=== PATIENT | female | born 1970 | race Caucasian/White ===

== ENCOUNTER 2016-10-12 17:05 | Inpatient (IN) | payer OTHER ==
[~2016-10-12] VITALS: Ht 170.2 cm; Wt 91.6 kg
[2016-10-12 17:06] VITALS: BP 145/84; PULSE 92; RESP 16; O2SAT 99
[2016-10-12 17:43] LABS: BASOPHILS % (AUTO) 0.5 % (0-3); EOSINOPHILS % (AUTO) 3.1 % (0-5); MONOCYTES % (AUTO) 7.2 % (4-12); Mean Corpuscular Hemoglobin 28.6 pg (27.0-35.0); Mean Corpuscular Volume 85.2 fL (81-100); Platelet Count 242 bil/L (150-400)
[2016-10-12 18:07] LABS: Magnesium 1.9 mg/dL (1.6-2.6)
--- NOTE | 2016-10-12 18:27 | ED.REPORT ---
HPI-Abd Pain F 40 and Over Date of Service Oct 12, 2016 ED Provider: Bobby Chowdhury MD Pt is a 46 y/o female w/ a hx of recent diverticulitis, presenting to the ED c/ o LLQ abdominal pain onset 6 days ago. The pt had a CT scan on September 29 which showed signs of diverticulitis and was placed on Augmentin and did not seemed to improve much. She saw her PCP soon afterwards who added Flagyl to her medication regimen and gave her more pain medication. She then seemed to improve for 2 days but for the past 5-6 days has been experiencing LLQ abdominal pain similar to her previous presentation, but more severe. She c/o associated nausea, diaphoresis. She denies fever. She has been able to keep some food down recently. She has not been able to sleep secondary to pain. Nursing Notes Stated Complaint: DIVERTICULITIS,BELLY PAIN Chief Complaint: Female Abdominal Pain Nursing Notes Reviewed: Yes ([employer], meds not reconciled) Allergies: Coded Allergies: Sulfa (Sulfonamide Antibiotics) (Verified Allergy, Unknown, 10/12/16) cephalexin (Verified Allergy, Unknown, 10/12/16) erythromycin base (Verified Allergy, Unknown, 10/12/16) latex (Verified Allergy, Unknown, 10/12/16) General Time Seen by MD: 18:25 Chief Complaint Abdominal pain Hx Obtained From: Patient Arrived By: Walk-in Sudden in Onset?: No Onset Occurred: 6 days ago Symptom Duration: Since onset Progression since Onset: Gradually worsening Location: : LLQ Quality: Painful Severity: Current: Moderate Severity: Maximum: Severe Recent Healthcare: Recent doctor visit, Recent testing, Previous diagnosis, Prior workup Similar Sx Previous: Yes Past Medical History Past Medical History Diverticulitis - CT + September 29, 2016 Hyperlipidemia Fibromyalgia Anxiety Insomnia Past Surgical History Appendectomy Total hysterectomy Smoking History Current Every Day Smoker Social History Alcohol Use: Denies alcohol use Ambulatory Status Independent Review of Systems Constitutional: Denies: Chills, Fever GI: Reports: Abdominal pain, Nausea Complete sys rev & neg: except as marked. Skin: Reports Diaphoresis Physical Exam Vital Signs Vital Signs (First) Date Time Temp Pulse Resp B/P Pulse Ox O2 Delivery O2 Flow Rate FiO2 10/12/16 17:06 36.2 92 16 145/84 99 Room Air Initial VS: Reviewed, Vital signs normal Head / Eyes: Atraumatic, Normocephalic, PERRL ENT: Mucous membranes moist, Conjunctiva normal, No scleral icterus Neck: Supple, Full range of motion Extremities: Vascular intact, Neuro intact, No swelling Skin: Warm, Dry, No cyanosis Neurologic: Alert, Oriented, Nonfocal Psychiatric: Mood/affect normal, Behavior normal, Normal thought content General/Constitutional: Awake, Alert, No acute distress, Cooperative, Not toxic appearing Respiratory / Chest: Breath sounds NL, Breath sounds = bilat, No respiratory distress, No rales, No rhonchi, No wheezing, No stridor Cardiovascular: Heart rate NL, Regular rhythm, Heart sounds NL, No gallop, No murmurs, No rubs, Peripheral circulation NL Abdomen: Atraumatic, Soft, No guarding, No rebound, No distention, No palpable mass Tenderness/Guarding/Rebound: Positive: Tender LLQ... (mild-moderate) Back: Full range of motion, Painless range of motion Interpretation & Diagnostics Lab Results Interpretation Result Diagram: 10/12/16 1736 10/12/16 1736 Test 10/12/16 17:36 10/12/16 18:03 White Blood Count 7.4th/mm3 (3.8-10.1) Red Blood Count 4.79mil/mm3 (3.90-5.20) Hemoglobin 13.7g/dL (12.0-15.6) Hematocrit 40.8% (35.0-46.0) Mean Corpuscular Volume 85.2fL (81-100) Mean Corpuscular Hemoglobin 28.6pg (27.0-35.0) Mean Corpuscular Hemoglobin Concent 33.6% (32.0-37.0) Red Cell Distribution Width 13.6% (12.3-15.4) Platelet Count 242bil/L (150-400) Neutrophils (%) (Auto) 51.0% (40-74) Lymphocytes (%) (Auto) 38.1% (14-46) Monocytes (%) (Auto) 7.2% (4-12) Eosinophils (%) (Auto) 3.1% (0-5) Basophils (%) (Auto) 0.5% (0-3) Sodium Level 140mEq/L (134-144) Potassium Level 3.8mEq/L (3.5-5.2) Chloride Level 101mEq/L (97-108) Carbon Dioxide Level 25mmol/L (18-29) Blood Urea Nitrogen 8mg/dL (6-24) Creatinine 0.56mg/dL (0.57-1.00) Estimat Glomerular Filtration Rate 166mL/min (>59) Glucose Level 98mg/dL (60-99) Calcium Level 9.7mg/dL (8.5-10.1) Magnesium Level 1.9mg/dL (1.6-2.6) Total Bilirubin 0.4mg/dL (0.0-1.2) Aspartate Amino Transf (AST/SGOT) 28U/L (0-50) Alanine Aminotransferase (ALT/SGPT) 27U/L (0-32) Alkaline Phosphatase 65U/L (25-150) Total Protein 7.3g/dL (6.4-8.4) Albumin 4.2g/dL (3.4-5.0) Hold Carpenter Top Tube Received (Received) Hold Urine Received (Received) Lab Results Interpretation: CBC nl CMP nl CT Abd / Pelvis Interpretation IMPRESSION: 1. No imaging explanation for worsening left lower quadrant abdominal pain. Interval resolution of sigmoid colon diverticulitis. 2. Solitary mildly enlarged lymph node adjacent to the right diaphragmatic lj is again noted, a nonspecific finding of uncertain etiology. Dictated by: Estevan Dean M.D. on 10/12/2016 at 21:06 Approved by: Estevan Dean M.D. on 10/12/2016 at 21:13 Study type: Abdominal CT IV contrast, Abdom CT oral contrast Interpretation / Wet Read by: Interpret - Radiologist Re-Eval/Medical Decision Med Decision/Clinical Course This is a 46F who presents complaining of increasing LLQ pain despite treatment for a first time episode of diverticulitis. Patient was dx by CT scan on 09/29 and started on Augmentin, but initially failed to improve much so Flagyl was added and she seemed to improve. However, symptoms started to worsen 5-6 days ago and are now worse than when she started. She thinks she had a fever a week ago, but now it's worsening LLQ pain (now 9/10) and inability to sleep. She has been on a liquid diet. She is having soft stools. She does not appear toxic or septic. She is not febrile and her vitals are normal. She has moderate tenderness without guarding in the LLQ. Bloodwork is normal. At this point the patient is failing outpatient antibiotic and admission for parenteral therapy is indicated. A CT with IV and oral contrast is being obtained. The patient is being started on Zosyn and Flagyl will be given parentally. IV fluids, pain, and nausea medicines are given with improvement. Source of Hx: Old records Re-Evaluation/Progress : Time of Eval: 19:12 Re-Evaluation/Progress Note: Pt rechecked. Informed pt of need for admission for diverticulitis management. Pt understands and agrees with plan for admission. All questions addressed. Consultation : Referral / Consult Name: Wilber Mirza MD Consulted With: Hospitalist Call Returned at: 19:13 Meat Wrapper: Will see patient, Agrees with eval, Agrees with plan, Accepts admit Differential Diagnosis: Positive: Diverticular disease, Negative: Abdominal aortic aneurysm, Ectopic , Esophageal rupture, Gun shot wound abdomen, Intrauterine , Peritonitis, Stab wound abdomen , Trauma, abdominal Counseled Regarding: Diagnosis, Lab results, Need for admission Discharge & Departure Primary Impression: Diverticulitis Diverticulitis site: unspecified part of intestinal tract Diverticulitis bleeding: without bleeding Diverticulitis complication: without perforation or abscess Qualified Code: K57.92 - Diverticulitis of intestine, part unspecified, without perforation or abscess without bleeding Disposition: ADMITTED TO HOSPITAL Discharge Condition All VS Reviewed: Yes Condition: Stable Referrals: Gustavo Valdivia MD (PCP) Juan Francisco Attestation Portions of this note were transcribed by Jose Gillette. I, Dr. Chowdhury personally performed the history, physical exam and medical decision-making; I reviewed and confirmed the accuracy of the information in the transcribed note. Signed by Juan Francisco Anderson, 10/12/16 - 1914 copies to: Gustavo Valdivia MD, Matthew F MD Oct 12, 2016 18:27 JOSE GILLETTE Oct 12, 2016 18:52
[2016-10-12] MEDS ORDERED: Ondansetron 2 mg/mL 2 mL Inj IVPUSH ONE (18:30)
[2016-10-12] MEDS ORDERED: 0.9% Sodium Chloride 1,000 ML IV ONE ×2 (18:30→18:55)
[2016-10-12] MEDS: HYDROmorphone 0.5 mg/0.5 mL iSecure Syringe IVPUSH PRN ×3 (18:42→21:04)
[2016-10-12] MEDS ORDERED: Iohexol 300 mg/mL 30 mL Inj PO ONE (18:55)
[2016-10-12] MEDS ORDERED: metroNIDAZOLE Inj 1,000 MG in IV Premix 1 EACH IV ONE (18:55)
[2016-10-12] MEDS ORDERED: Piperacillin-Tazo 3.375 Gm Inj 3.375 GM in Dextrose 5% Minibag Plus 50 ML IV ONE (18:55)
[2016-10-12 20:05] VITALS: BP 142/81; PULSE 87; RESP 17; O2SAT 97
--- NOTE | 2016-10-12 20:39 | PCM.HPMED ---
Subjective Date of Service Oct 12, 2016 Primary Provider: Admitting Physician: Wilber Mirza MD Primary Care Physician: Gustavo Valdivia MD Attending Physician: Wilber Mirza MD Admit Status: From the Emergency Department Chief Complaint: Left lower quadrant abdominal pain. History of Present Illness: This is a 46 year old female who present for abdominal pain. The patient first began to develop symptoms of suprapubic pain approximately two weeks ago. The pain was associated with diarrhea that was nonbloody and fevers. She presented to her PCP on September 29, [address] scan of abdomen at that time showed uncomplicated colon diverticulitis and 1.1 cm pericaval lymphadenopathy, reactive vs. neoplastic. She was initially placed on Amoxicillin only and did not improve. Flagyl was then added and she improved for several days but then began to have fevers and chills again . Today, she denies vomiting but does have nausea. She states that the pain is sharp and located in the left lower quadrant of the abdomen. She states she is having regular bowel movements that are liquid and without hematochezia or melena. She denies any shortness of breath, chest pain or pressure, lower extremity swelling. In the emergency department initial vitals were temp 36.2c, pulse 92, respiratory rate 18, blood pressure 145/84, satting at 99% on room air. CBC and CMP showed no concerning abnormalities. In the ED she was given a dose of metronidazole and Zosyn. CT of the abdomen and pelvis is pending. Review of Systems: A comprehensive review of systems was conducted with the patient and found to be negative except as above in the History of Present Illness. Allergies Coded Allergies: Sulfa (Sulfonamide Antibiotics) (Verified Allergy, Unknown, 10/12/16) cephalexin (Verified Allergy, Unknown, 10/12/16) erythromycin base (Verified Allergy, Unknown, 10/12/16) latex (Verified Allergy, Unknown, 10/12/16) Home Medications Simvastatin 40mg daily Cymbalta 60mg daily Buspirone Trazodone 100mg HS. PMH Diverticulitis diagnosed September 29. Hyperlipidemia Fibromyalgia Anxiety Insomnia Surgical History Appendectomy in 1985 Total hysterectomy in 1993 Family History Father: bone cancer (unknown type). No family history of colorectal cancer or inflammatory bowel disease. Social History Hx Alcohol Use: Yes (socially) Hx Substance Use: No Smoking Status: Current Every Day Smoker (20 pack years) Living Arrangement: with Family Exam Vital Signs Vital Sign - Last Date Time Temp Pulse Resp B/P Pulse Ox O2 Delivery O2 Flow Rate FiO2 10/12/16 20:05 36.3 87 17 142/81 97 Room Air Exam General: No acute distress, well-developed, well-nourished, appropriately interactive HEENT: Normocephalic, atraumatic. External ears without defect. Pupils equal, round, and reactive to light and accommodation. Anicteric sclerae, moist conjunctivae, and no lid lag. Oropharynx free of erythema and cobble stoning with moist mucosa. Neck: Supple with full range of motion. No jugular venous distension. No bruits. No lymphadenopathy or thyromegaly. Cardiovascular: Regular rate and rhythm with no murmurs, rubs, or gallops appreciated Pulmonary: Clear to auscultation bilaterally with no crackles, wheezes, or rhonchi. Normal respiratory effort with no use of accessory muscles. Abdomen: Bowel tones hyperactive in all quadrantst. Soft, obese. Tender to palpation in left lower quadrant without rebound or guarding.. No hepatosplenomegaly or masses appreciated. Extremities: No clubbing, cyanosis, edema, or lymphadenopathy appreciated. Skin: Normal temperature, turgor, and texture; no rash, ulcers, or subcutaneous nodules appreciated. Neurological: Cranial nerves grossly intact. Normal muscle strength, tone, and bulk. Reflexes, coordination, and sensory function within normal limits. No known gait impairment. Psychiatric: Normal mood and affect. Alert and oriented to person, place, and time. Lab and Diagnostics Result Diagram: 10/12/16 1736 10/12/16 1736 X-Rays, CTs and MRIs CT of the abdomen and pelvis with contrast on September 29, 2016: IMPRESSION: #1. Findings compatible with uncomplicated sigmoid colon diverticulitis. 2. 1.1 cm pericaval lymphadenopathy which could be reactive or neoplastic. Dictated by: Kendal Bryant MD, PhD on 09/29/2016 at 18:51 Assessment & Plan This is a 46 year old female with diagnosis of diverticulitis by CT on September who presents today with worsening abdominal pain and chills after being on outpatient antibiotics. She initially was placed on amoxicillin without improvement. Flagyl was then added which did improve symptoms for several days before symptoms returned. Likely diverticulitis that has not responded to antibiotics. Differential includes: inflammatory bowel disease, UTI, nephrolithiasis, ischemic colitis, ovarian pathology. Acute diverticulitis, present on admission, ongoing: -Patient has symptoms of left lower quadrant pain and subjective fevers. -CT of abdomen with contrast pending to rule out abscess. -She received Zosyn and metronidazole in the ED. -Will continue with Zosyn. Diarrhea, present on admission, ongoing: -Patient complains of diarrhea as well. She has been on amoxicillin. -PCR stool panel ordered. Hyperlipidemia, present on admission, stable: -Continue statin. Anxiety, present on admission, stable: -Continue Cymbalta. Insomnia, present on admission, stable: -Continue trazodone. DVT prophylaxis with enoxaparin. Patient is admitted under inpatient status with expected length of stay greater than 2 midnights due to severity of presenting symptoms, risk of adverse event, and complexity of treatment plan. Pain Evaluation: Adequate Pain Control Resuscitation Status: CPR: Attempt Resuscitation Attending Statement The patient was seen and examined together with Dr. Jurado on 10/12 and I agree with the history, exam and plan as outlined in the note above. Antonio Jurado DO Oct 12, 2016 20:39 Wilber Mirza MD Oct 12, 2016 22:25
[2016-10-12] MEDS: Dextrose 5% 500 ML IV SCH (21:07)
[2016-10-12] MEDS ORDERED: 0.9% Sodium Chloride 1,000 ML IV SCH (21:07)
[2016-10-12] MEDS ORDERED: Ondansetron 2 mg/mL 2 mL Inj IVPUSH PRN (21:10)
[2016-10-12] MEDS ORDERED: Alum-Mag Hydrox-Simeth 30 mL Suspension PO PRN ×2 (21:10→22:05)
[2016-10-12 21:14] LABS: APPEARANCE,URINE CLEAR (CLEAR,HAZY); COLOR,URINE YELLOW (YELLOW); OCCULT BLOOD,URINE NEGATIVE (NEGATIVE); PH,URINE 5.5 (5.0-8.0); UROBILINOGEN,URINE NORMAL (NORMAL)
--- NOTE | 2016-10-12 21:15 | DRSVH ---
PROCEDURE: CT ABDOMEN AND PELVIS WITH CONTRAST ([id number]) INDICATIONS: 46 year-old female with worsening left lower quadrant abdominal pain 12 days after antib iotics for diverticulitis. TECHNIQUE: After the administration of oral and intravenous contrast, 5 mm thick sections acquired from the diap hragms to the symphysis. 5 mm thick coronal and sagittal reformats were performed. For radiation do se reduction, the following was used: automated exposure control, adjustment of mA and/or kV accordi ng to patient size. COMPARISON: [facility], CT, CT ABD PELVIS W CON, 09/29/2016, 18:12. FINDINGS: Image quality: Excellent. ABDOMEN: Lung bases: Lung bases are clear. Heart size is normal. Solid organs: Liver and spleen are normal in size and enhancement. Gallbladder wall thickness is no rmal. Biliary system is non-dilated. Pancreas enhances normally. No adrenal nodules. Kidneys are normal in size and enhancement, without hydronephrosis. Bilateral extrarenal pelves are again noted i ncidentally, larger on the right. Peritoneum and bowel: Stomach, small bowel, and colon loops are normal in caliber and wall thickness . Previously noted acute sigmoid diverticulitis is no longer apparent. Descending and sigmoid colon diverticula are again noted. No free fluid or air. Nodes and vessels: On axial image 27, 1.3 cm prominent lymph node adjacent to the right diaphragmati c lj is again noted. No retroperitoneal or mesenteric adenopathy. Aorta and inferior vena cava are normal in caliber, with mild aortic atherosclerosis. Miscellaneous: No ventral hernias. PELVIS: Genitourinary: Bladder wall thickness is normal. The uterus is surgically absent. The ovaries are n ot seen, and may be surgically absent as well. Miscellaneous: No inguinal hernias or adenopathy. Bones: No suspicious bony lesions. No vertebral body compression fractures. IMPRESSION: 1. No imaging explanation for worsening left lower quadrant abdominal pain. Interval resolution of si gmoid colon diverticulitis. 2. Solitary mildly enlarged lymph node adjacent to the right diaphragmatic lj is again noted, a non specific finding of uncertain etiology. Dictated by: Estvean Dean M.D. on 10/12/2016 at 21:06 Approved by: Estevan Dean M.D. on 10/12/2016 at 21:13
[2016-10-12 21:33] VITALS: BP 157/92; PULSE 77; RESP 20; O2SAT 96
[2016-10-12] MEDS: 0.9% Sodium Chloride 1,000 ML IV SCH (22:05)
[2016-10-12] MEDS ORDERED: Polyethylene Glycol (PEG) 17 Gm Powder PO PRN (22:05)
[2016-10-12] MEDS: HYDROmorphone PCA 0.2 mg/mL 30 mL Inj IV PRN (22:17)
[2016-10-12] MEDS: Ondansetron 2 mg/mL 2 mL Inj IVPUSH PRN (23:08)
[2016-10-12] MEDS ORDERED: SIMV40TA5 PO (23:43)
[2016-10-12] MEDS ORDERED: DULO40CA2 PO (23:45)
[2016-10-12] MEDS ORDERED: BUSP30TA2 PO (23:46)
[2016-10-12] MEDS ORDERED: TRAZ-118 PO (23:47)
[2016-10-13] VITALS (7 sets, daily range): BP systolic 124–159; BP diastolic 55–78; PULSE 73–85; RESP 16–20; O2SAT 95–97
[2016-10-13] MEDS: Piperacillin-Tazo 3.375 Gm Inj 3.375 GM in Dextrose 5% Minibag Plus 50 ML IV SCH ×2 (02:39→10:51)
--- NOTE | 2016-10-13 03:10 | NUR ---
Arrival to unit Patient A&OX3 and pleasant this evening. Arrived to floor at approx 2120 via ED gurney. Able to ambulate to hospital bed with SBA. Complains of 7/10 abdominal pain. FIELD COLLECTOR of Dilaudid ..2 started with NS at 100cc infusing. 4mg Zofran given for nausea. CO SUPERVISOR GROUNDS [employer] LANDSCAPE applied. Admission and Med Rec completed. Will continue to monitor, and continue Q1 hour checks.
[2016-10-13 08:08] LABS: Mean Corpuscular Hemoglobin 28.1 pg (27.0-35.0); Mean Corpuscular Volume 86.5 fL (81-100)
[2016-10-13] MEDS: HYDROmorphone PCA 0.2 mg/mL 30 mL Inj IV PRN (08:10)
[2016-10-13] MEDS: 0.9% Sodium Chloride 1,000 ML IV SCH (08:10)
[2016-10-13] MEDS: BusPIRone 15 mg Dividose Tablet PO SCH (08:36)
[2016-10-13] MEDS: DULoxetine 30 mg DR Capsule PO SCH (08:46)
--- NOTE | 2016-10-13 10:38 | NUR ---
Social Work: Screening D: EMR reviewed. Pt is a 46 y/o female admitted for diverticulitis per H&P. SW met with pt at bedside to conduct initial screening. Pt was alert and oriented x3. SW explained role and wrote phone number on white board. SW provided DPOA/advanced directive ppw at pt's request and encouraged pt to provide a copy to the hospital when completed. Pt's insurance is [email or web address] [facility] and PCP is Gustavo Valdivia MD. Pt gave SW consent to contact pt's spouse ([phone]) for discharge planning, if necessary. Pt confirmed that her spouse will provide transport home via POV when pt is medically stable. SW does not anticipate any discharge needs at this time but will continue to follow if needs arise. A: Pt who is independent at baseline. P: SW confirmed that pt's spouse will provide transport home via POV when pt is medically stable. SW does not anticipate any discharge needs at this time but will continue to follow if needs arise. DARRICK Trujillo
[2016-10-13] MEDS: Ondansetron 2 mg/mL 2 mL Inj IVPUSH PRN (10:59)
--- NOTE | 2016-10-13 17:27 | NUR ---
ACTIVITY ANIMAL CARE SUPERVISOR d/cd this morning. Pain medication was switched to Morphine IV. Patient rated her pain as 7/10, stating that the Morphine is helping ease the pain. Tolerating clear liquids. Diet was advanced to a soft diet. Will monitor intake. Patient complained of nausea earlier this shift. Zofran IV administered, which was effective. No emesis noted. Denies SOB. Patient was able to ambulate independently in the room. Gait is steady.
[2016-10-13] MEDS: metroNIDAZOLE Inj 500 MG in IV Premix 1 EACH IV SCH (20:44)
--- NOTE | 2016-10-13 21:02 | PCM.PNMED ---
Subjective Date of Service Oct 13, 2016 Subjective Patient is seen and examined. She says that she was seen couple weeks ago in urgent care at which time she received a CT abdominopelvic, which displayed sigmoid diverticulitis. She was given Augmentin and then 3 days after that Flagyl. She completed the Augmentin but not the Flagyl when she came to the ER for this admission. CT scan this time showed resolution of sigmoid diverticulitis. She says that her last good bowel movement was on the . Currently she is having a runny watery stool but no formed stool. She however says she is able to tolerate clear diet, though she has nausea at times. Her pain is located in the left lower quadrant, describes it as sharp pain. She does not have ovaries or uterus, and her UA is negative at the time of admission. She also denies urinary symptoms. She denies abnormal vaginal bleeding. She says that she has yeast infection. Exam Vital Signs Vital Sign - Last Date Time Temp Pulse Resp B/P Pulse Ox O2 Delivery O2 Flow Rate FiO2 10/13/16 14:58 36.7 78 18 159/77 96 Room Air Intake and Output 10/12/16 10/12/16 10/13/16 Cumulative From/Thru 15:00 23:00 07:00 10/12/16 17:06 - 10/13/16 06:53 Intake Total 1000 ml 1050 ml 2050 ml Output Total 2500 ml 2500 ml Balance 1000 ml -1450 ml -450 ml Intake Oral 400 ml 400 ml IV Total 1000 ml 650 ml 1650 ml Output Urine Total 2500 ml 2500 ml Exam General: No acute distress, well-developed, well-nourished, appropriately interactive HEENT: Normocephalic, atraumatic. External ears without defect. . Anicteric sclerae, moist conjunctivae, and no lid lag. Neck: Supple with full range of motion. No jugular venous distension. No bruits. No lymphadenopathy or thyromegaly. Cardiovascular: Regular rate and rhythm with no murmurs, rubs, or gallops appreciated Pulmonary: Clear to auscultation bilaterally with no crackles, wheezes, or rhonchi. Normal respiratory effort with no use of accessory muscles. Abdomen: Bowel tones hyperactive in all quadrantst. Soft, obese. Tender to palpation in left lower quadrant and over the bladder. Non tender over the c- section scar Extremities: No clubbing, cyanosis, edema, Skin: Warm and dry Neurological: No focal deficits Psychiatric: Normal mood and affect. Alert and oriented to person, place, and time. IVs and Medications IV Fluids Discontinued fluids Medications Reviewed: Medications were reviewed in detail Lab and Diagnostics Result Diagram: 10/13/16 0750 10/13/16 0750 X-Rays, CTs and MRIs CT of the abdomen and pelvis with contrast on September 29, 2016: IMPRESSION: #1. Findings compatible with uncomplicated sigmoid colon diverticulitis. 2. 1.1 cm pericaval lymphadenopathy which could be reactive or neoplastic. Dictated by: Kendal Bryant MD, PhD on 09/29/2016 at 18:51 PROCEDURE: CT ABDOMEN AND PELVIS WITH CONTRAST ([id number]) INDICATIONS: 46 year-old female with worsening left lower quadrant abdominal pain 12 days after antibiotics for diverticulitis. IMPRESSION: 1. No imaging explanation for worsening left lower quadrant abdominal pain. Interval resolution of sigmoid colon diverticulitis. 2. Solitary mildly enlarged lymph node adjacent to the right diaphragmatic lj is again noted, a nonspecific finding of uncertain etiology. Dictated by: Estevan Dean M.D. on 10/12/2016 at 21:06 Approved by: Estevan Dean M.D. on 10/12/2016 at 21:13 Assessment & Plan This is a 46 year old female with diagnosis of diverticulitis by CT on September who presents today with worsening abdominal pain and chills after being on outpatient antibiotics. She initially was placed on amoxicillin without improvement. Flagyl was then added which did improve symptoms for several days before symptoms returned. Likely diverticulitis that has not responded to antibiotics. Differential includes: inflammatory bowel disease, UTI, nephrolithiasis, ischemic colitis, ovarian pathology. Acute diverticulitis, present on admission, ongoing: -Patient has symptoms of left lower quadrant pain and subjective fevers. -Discontinued Zosyn, as this is uncomplicated resolving diverticulitis -We will continue IV Cipro and Flagyl IV -Distribution medications to give 2 mg of morphine every 3 hours when necessary -- Advance diet. Stop fluids. Diarrhea, present on admission, ongoing: -PCR stool panel ordered.: Negative Hyperlipidemia, present on admission, stable: -Continue statin. Anxiety, present on admission, stable: -Continue Cymbalta. Insomnia, present on admission, stable: -Continue trazodone. DVT prophylaxis with enoxaparin. Patient is admitted under inpatient status with expected length of stay greater than 2 midnights due to severity of presenting symptoms, risk of adverse event, and complexity of treatment plan. Disposition: The patient can tolerate normal diet, not having pain she can go home on 10/14/2016 Pain Evaluation: Pain not Controlled VTE Prophylaxis: Sub-Q Enoxaparin VTE Mechanical Devices: Intermittant Pneumatic CD Resuscitation Status: CPR: Attempt Resuscitation Time spent 30 min Mindi Dykes DO Oct 13, 2016 21:02
[2016-10-13] MEDS: Ciprofloxacin Inj 400 MG in IV Premix 1 EACH IV SCH (21:58)
[2016-10-13] MEDS: Dextrose 5% 500 ML IV SCH (22:01)
[2016-10-14 06:20] VITALS: BP 157/88; PULSE 77; RESP 16; O2SAT 99
[2016-10-14] MEDS: Ciprofloxacin Inj 400 MG in IV Premix 1 EACH IV SCH (08:45)
[2016-10-14] MEDS: DULoxetine 30 mg DR Capsule PO SCH (09:12)
[2016-10-14] MEDS: BusPIRone 15 mg Dividose Tablet PO SCH (09:12)
--- NOTE | 2016-10-14 10:25 | NUR ---
Social Work: Readiness for Discharge D: EMR reviewed. Pt is on day 2 of hospitalization. Per MD in AM multi-discplinary rounds, pt will discharge today. Pt confirmed that her spouse will provide transport home via POV when pt is medically stable. SW does not anticipate any discharge needs at this time but will continue to follow if needs arise. A: Pt who is independent at baseline. P: SW confirmed that pt's spouse will provide transport home via POV when pt is medically stable. SW does not anticipate any discharge needs at this time but will continue to follow if needs arise. DARRICK Trujillo
[2016-10-14] MEDS: metroNIDAZOLE Inj 500 MG in IV Premix 1 EACH IV SCH (10:44)
[2016-10-14] MEDS ORDERED: CIPR-231 PO (13:32)
[2016-10-14] MEDS ORDERED: OXYC1TAB24 PO (13:32)
[2016-10-14] MEDS ORDERED: POLY17PO6 PO (13:32)
[2016-10-14] MEDS ORDERED: LACT1CAP57 PO (13:33)
--- NOTE | 2016-10-14 13:45 | PCM.DIMED ---
Discharge Instructions Date of Service Oct 14, 2016 Dates of Hospitalization Oct 12, 2016 at 19:50 Discharge Diagnosis Discharge Diagnosis Sigmoid diverticulitis Diet Discharge Diet: Low fat, Low Sodium (bland) Activity Discharge Activity: Other (please do not drive if taking pain meds) Call your provider Call your provider for: Fever or Chills, Shortness of breath, Bleeding, Chest pain, Vomitting, Excessive diarrhea, Weakness (unilateral), Other Patient Instructions Patient Instructions [place], low fat diet for 2 weeks, then start adding fiber Maintain a good bowel regimen with miralax as needed Take probiotics to avoid diarrhea Complete 6 days of cipro and your home med flagyl Avoid driving if taking pain meds Follow-up plan F/U with GI Dr. Lakhani or his partners in 2-4 weeks F/U with PCP in one week Mindi Dykes DO Oct 14, 2016 13:45
--- NOTE | 2016-10-14 14:17 | NUR ---
Social Work: Discharge D: EMR reviewed. Pt is on day 2 of hospitalization. Per MD in AM multi-discplinary rounds, pt will discharge today. Pt confirmed that her spouse will provide transport home via POV today. SW does not anticipate any discharge needs at this time but will continue to follow if needs arise. A: Pt who is independent at baseline. P: SW confirmed that pt's spouse will provide transport home via POV today. SW does not anticipate any discharge needs at this time but will continue to follow if needs arise. DARRICK Trujillo
--- NOTE | 2016-10-14 15:55 | NUR ---
Discharge Pt discharged to home with family via private vehicle at 1555 hrs. VSS. PIV removed intact. Pain controlled with oral medication. All personal possessions sent with pt. Discharge and follow up instructions given to pt, and she expressed understanding.
--- NOTE | 2016-10-16 14:41 | PCM.DC.MED ---
Discharge Summary Date of Service Oct 14, 2016 Dates of Hospitalization Date of Hospital Admission Oct 12, 2016 at 19:50 Date of Discharge: Oct 14, 2016 Providers: Admitting Physician: Wilber Mirza MD Primary Care Physician: Gustavo Valdivia MD Attending Physician: Wilber Mirza MD Diagnosis at Time of Discharge Diagnosis at Time of Discharge Sigmoid diverticulitis Consultations None Procedures XRay, CTs & MRIs CT of the abdomen and pelvis with contrast on September 29, 2016: IMPRESSION: #1. Findings compatible with uncomplicated sigmoid colon diverticulitis. 2. 1.1 cm pericaval lymphadenopathy which could be reactive or neoplastic. Dictated by: Kendal Bryant MD, PhD on 09/29/2016 at 18:51 PROCEDURE: CT ABDOMEN AND PELVIS WITH CONTRAST ([id number]) INDICATIONS: 46 year-old female with worsening left lower quadrant abdominal pain 12 days after antibiotics for diverticulitis. IMPRESSION: 1. No imaging explanation for worsening left lower quadrant abdominal pain. Interval resolution of sigmoid colon diverticulitis. 2. Solitary mildly enlarged lymph node adjacent to the right diaphragmatic lj is again noted, a nonspecific finding of uncertain etiology. Dictated by: Estevan Dean M.D. on 10/12/2016 at 21:06 Approved by: Estevan Dean M.D. on 10/12/2016 at 21:13 Brief History This is a 46 year old female who present for abdominal pain. The patient first began to develop symptoms of suprapubic pain approximately two weeks ago. The pain was associated with diarrhea that was nonbloody and fevers. She presented to her PCP on September 29, [address] scan of abdomen at that time showed uncomplicated colon diverticulitis and 1.1 cm pericaval lymphadenopathy, reactive vs. neoplastic. She was initially placed on Amoxicillin only and did not improve. Flagyl was then added and she improved for several days but then began to have fevers and chills again . Today, she denies vomiting but does have nausea. She states that the pain is sharp and located in the left lower quadrant of the abdomen. She states she is having regular bowel movements that are liquid and without hematochezia or melena. She denies any shortness of breath, chest pain or pressure, lower extremity swelling. In the emergency department initial vitals were temp 36.2c, pulse 92, respiratory rate 18, blood pressure 145/84, satting at 99% on room air. CBC and CMP showed no concerning abnormalities. In the ED she was given a dose of metronidazole and Zosyn. CT of the abdomen and pelvis is pending. Hospital Course This is a 46 year old female with diagnosis of diverticulitis by CT on September who presents today with worsening abdominal pain and chills after being on outpatient antibiotics. She initially was placed on amoxicillin without improvement. Flagyl was then added which did improve symptoms for several days before symptoms returned. Likely diverticulitis that has not responded to antibiotics. Differential includes: inflammatory bowel disease, UTI, nephrolithiasis, ischemic colitis, ovarian pathology. Acute diverticulitis, present on admission, ongoing: -Patient has symptoms of left lower quadrant pain and subjective fevers. -Discontinued Zosyn, as this is uncomplicated resolving diverticulitis -She was given Cipro and Flagyl IV -Distribution medications to give 2 mg of morphine every 3 hours when necessary -On the day of discharge, patient is tolerating bland diet. Not having nausea, vomiting or fevers -She is asked to complete 6 more days of cipro and flagyl and follow up with GI. They can decide if she needs a scope at some point and refer to Gen Surg as needed. Diarrhea, present on admission, ongoing: -PCR stool panel was negative Hyperlipidemia, present on admission, stable: -Continue statin. Anxiety, present on admission, stable: -Continue Cymbalta. Insomnia, present on admission, stable: -Continue trazodone. DVT prophylaxis with enoxaparin. Patient is admitted under inpatient status with expected length of stay greater than 2 midnights due to severity of presenting symptoms, risk of adverse event, and complexity of treatment plan. Exam Vital Signs (Last) Date Time Temp Pulse Resp B/P Pulse Ox O2 Delivery O2 Flow Rate FiO2 10/14/16 06:20 36.8 77 16 157/88 99 Room Air Exam General: No acute distress, well-developed, well-nourished, appropriately interactive HEENT: Normocephalic, atraumatic. External ears without defect. . Anicteric sclerae, moist conjunctivae, and no lid lag. Neck: Supple with full range of motion. No jugular venous distension. No bruits. Cardiovascular: Regular rate and rhythm with no murmurs, rubs, or gallops appreciated Pulmonary: Clear to auscultation bilaterally with no crackles, wheezes, or rhonchi. Normal respiratory effort with no use of accessory muscles. Abdomen: Bowel tones normal in all quadrants. Soft, obese. Mildly tender to palpation in left lower quadrant Extremities: No clubbing, cyanosis, edema, Skin: Warm and dry Neurological: No focal deficits Psychiatric: Normal mood and affect. Alert and oriented to person, place, and ti Test 10/12/16 17:36 10/12/16 18:03 10/12/16 20:41 10/13/16 07:50 Neutrophils (%) (Auto) 51.0% (40-74) Lymphocytes (%) (Auto) 38.1% (14-46) Monocytes (%) (Auto) 7.2% (4-12) Eosinophils (%) (Auto) 3.1% (0-5) Basophils (%) (Auto) 0.5% (0-3) Magnesium Level 1.9mg/dL (1.6-2.6) Total Bilirubin 0.4mg/dL (0.0-1.2) Aspartate Amino Transf (AST/SGOT) 28U/L (0-50) Alanine Aminotransferase (ALT/SGPT) 27U/L (0-32) Alkaline Phosphatase 65U/L (25-150) C-Reactive Protein 0.3mg/dL (0.0-0.5) Total Protein 7.3g/dL (6.4-8.4) Albumin 4.2g/dL (3.4-5.0) Hold [place] Top Tube Received (Received) Hold Urine Received (Received) Urine Color Yellow (YELLOW) Urine Appearance Clear (CLEAR,HAZY) Urine pH 5.5 (5.0-8.0) Urine Specific [place] <1.005 (1.003-1.035) Urine Protein Negativemg/dL (NEG,TRACE) Urine Glucose (UA) Negativemg/dL (NEGATIVE) Urine Ketones Negativemg/dL (NEGATIVE) Urine Occult Blood Negative (NEGATIVE) Urine Nitrite Negative (NEGATIVE) Urine Bilirubin Negative (NEGATIVE) Urine Urobilinogen Normalmg/dL (NORMAL) Urine Leukocyte Esterase Negative (NEGATIVE) Urine RBC 0-2/hpf (0-2) Urine WBC 0-5/hpf (0-5) Urine Epithelial Cells Occasional/hpf (NONE-MOD) Urine Crystals None seen (NONE SEEN) Urine Bacteria None/hpf (NONE-FEW) Urine Hyaline Casts None/lpf (NONE) Urine Granular Casts None seen (NONE SEEN) Urine Waxy Casts None seen (NONE SEEN) Urine Red Blood Cell Casts None seen (NONE SEEN) Urine White Blood Cell Casts None seen (NONE SEEN) Urine Mucus None seen (None Seen) Urine Trichomonas None seen (NONE SEEN) Urine Yeast None (NONE SEEN) Urinalysis Comment None Urine Culture Reflexed Not indicated White Blood Count 5.6th/mm3 (3.8-10.1) Red Blood Count 4.45mil/mm3 (3.90-5.20) Hemoglobin 12.5g/dL (12.0-15.6) Hematocrit 38.5% (35.0-46.0) Mean Corpuscular Volume 86.5fL (81-100) Mean Corpuscular Hemoglobin 28.1pg (27.0-35.0) Mean Corpuscular Hemoglobin Concent 32.5% (32.0-37.0) Red Cell Distribution Width 13.6% (12.3-15.4) Platelet Count 226bil/L (150-400) Sodium Level 138mEq/L (134-144) Potassium Level 4.0mEq/L (3.5-5.2) Chloride Level 103mEq/L (97-108) Carbon Dioxide Level 24mmol/L (18-29) Blood Urea Nitrogen 5mg/dL (6-24) Creatinine 0.54mg/dL (0.57-1.00) Estimat Glomerular Filtration Rate 173mL/min (>59) Glucose Level 101mg/dL (60-99) Calcium Level 8.5mg/dL (8.5-10.1) Discharge Medications Discharge Medications Buspirone (Buspirone) 30 Mg Tablet 30 MG PO DAILY (Reported) Ciprofloxacin (Cipro) 500 Mg Tablet 500 MG PO BID Prescribed by: MINDI BANKS DO Duloxetine HCl (Duloxetine HCl) 40 Mg Capsule.dr 60 MG PO DAILY (Reported) Lactobacillus Acidophilus (Acidophilus) 1 Each Capsule 1 EACH PO BIDWM Prescribed by: MINDI BANKS DO Trazodone (Trazodone) 100 Mg Tablet 100 MG PO HS (Reported) As needed Polyethylene Glycol 3350 (Miralax) 17 Gm Powd.pack 17 GM PO DAILY PRN PRN For Constipation Prescribed by: MINDI BANKS DO Simvastatin (Simvastatin) 40 Mg Tablet 40 MG PO HS PRN PRN For Cholesterol ( Reported) oxyCODONE-Acetaminophen 5-325 mg (oxyCODONE-Acetaminophen 5-325 mg) 1 Each Tablet 1 TAB PO Q6H PRN PRN For Pain Prescribed by: MINDI BANKS DO Followup Plan Follow-up plan F/U with GI Dr. Lakhani or his partners in 2-4 weeks F/U with PCP in one week Discharge Diet: Low fat, Low Sodium (bland) Discharge Activity: Other (please do not drive if taking pain meds) Patient Instructions [place], low fat diet for 2 weeks, then start adding fiber Maintain a good bowel regimen with miralax as needed Take probiotics to avoid diarrhea Complete 6 days of cipro and your home med flagyl Avoid driving if taking pain meds Time spent 35 min Mindi Banks DO Oct 14, 2016 13:46
== END 2016-10-14 16:10 | disposition home or self-care (01) | DRG 392 ==
LOC: SED 17:05 → OSC 19:50
PROVIDERS: ADMIT Hospitalist; ATTEND Hospitalist
DX: K57.32 Diverticulitis of large intestine without perforation or abscess without bleeding (principal); B37.3 Candidiasis of vulva and vagina; F17.210 Nicotine dependence, cigarettes, uncomplicated; E78.5 Hyperlipidemia, unspecified; F41.9 Anxiety disorder, unspecified; R19.7 Diarrhea, unspecified; G47.00 Insomnia, unspecified

== ENCOUNTER 2016-11-16 09:30 | Day surgery (SDC) | payer OTHER ==
[~2016-11-16] VITALS: Ht 170.2 cm; Wt 86.2 kg
[~2016-11-16 09:30] MED LIST: 0.9% Sodium Chloride 1,000 ML IV SCH; BUSP30TA2 PO; CIPR-231 PO; DULO30CA PO; LACT1CAP57 PO; ONDA4TAB12 PO; OXYC1TAB24 PO; POLY17PO6 PO; PRD2.5T PO; SIMV40TA5 PO; Sodium Chloride LOK Flush 10 mL Syringe IV PRN; TRAZ-118 PO; fentaNYL-PF 50 mCg/mL 2 mL Inj IVPUSH PRN
[2016-11-16 10:04] VITALS: BP 151/84; PULSE 86; O2SAT 97
[2016-11-16 10:57] VITALS: BP 142/76; PULSE 86; RESP 16; O2SAT 99
--- NOTE | 2016-11-16 11:00 | PCM.ENDCOL ---
Colonoscopy Date of Service: Nov 16, 2016 Physician Gerardo Lakhani MD Pre Procedure Diagnosis: Screening history of diverticulitis Post Procedure Dx & Findings: Cecal inflammation polyps diverticula AVM Procedure Colonoscopy PROCEDURE IN DETAIL: Prep adequate Withdrawal time 15 minutes After unremarkable rectal examination the Olympus video colonoscope was inserted patient's anal canal and was advanced to cecum. Landmarks were identified including the ileocecal valve and appendiceal orifice. Scope was withdrawn systematically. Visualized colonic mucosa showed healthy shiny mucosa with normal healthy-appearing vasculature. In the cecum, there was a 1 cm patch of reddish and somewhat inflamed mucosa. This was biopsied. Starting at the proximal transverse colon, we start seeing isolated small diverticula. In the sigmoid colon there are multiple medium- sized diverticulosis. In the descending colon there was a 3 mm polyp which is removed completely using cold snare. In the rectosigmoid area, we saw total of 4 polyps. 3 were 1 mm. These were all removed completely using cold forceps. One of them was 2 mm in size which was removed completely using cold snare. In the sigmoid colon, there was a 3-4 mm AVM. No bleeding noted. In the rectum retroflexion was done which showed hemorrhoids. Anal canal was inspected carefully on the way out and hemorrhoids noted. Impression Polyps 4 status post complete removal Diverticuli Inflamed cecum mucosa a 1 cm in size AVM Hemorrhoids Recommendation Repeat colonoscopy 3 years Diverticular diet Presedation Assessment Risks and Benefits Informed consent was obtained from the patient after all risks and benefits including but not limited to drug reaction, infection, pain, bleeding, perforation, as well as alternatives were discussed. Patient monitoring Continuous pulse oximetry, cardiac monitoring, blood pressure monitoring, IV access, and oxygen at 2L per nasal cannula. Periprocedural Fentanyl: Fentanyl 125mcg Incrementally Midazolam: Midazolam 5mg Incrementally Complications There were no periprocedural complications identified. Post Procedure Plan Post Procedure Recommendations 1. Restrict activities today. 2. Resume normal activities in the morning. 3. Resume medications. 4. Patient informed of normal post procedure side effects as bloating, drowsiness, blood streaking in the stool. 5. average risk CRCS. If colon polyps come back as: -Hyperplastic- can repeat colonoscopy in 10 years -Tubular adenoma- repeat colonoscopy in 5 years -Tubulovillous/villous adenoma- repeat colonoscopy in 3 years -If any dysplasia- return to clinic as soon as possible 6. Please don't hesitate to call me with any questions. Gerardo Lakhani MD Nov 16, 2016 11:00
[2016-11-16 11:07] VITALS: BP 164/89; PULSE 84; RESP 16; O2SAT 96
[2016-11-16 11:17] VITALS: BP 155/71; PULSE 91; RESP 16; O2SAT 99
--- NOTE | 2016-11-23 09:30 | PATH ---
SURGICAL PATHOLOGY Attending Physician:Gerardo Lakhani M.D. CASE STATUS: Signed Out PATIENT NAME: NILO CRABTREE PID: [id number] : 1970 DATE COLLECTED:11/16/2016 16:23 SPECIMEN: 1: Colon, Biopsy 2: Colon, Polyp 3: Colon, Polyp CLINICAL HISTORY: 1. CECAL BX 2. DESCENDING POLYP 3. SIGMOID RECTAL POLYP FINAL DIAGNOSIS: 1. Cecum, Biopsy: Colonic mucosa with no significant diagnostic abnormality. Negative for active inflammation, granulomas, dysplasia, and malignancy. 2. Descending Colon, Polyp, Biopsy: Tubular adenoma; negative for high-grade dysplasia. 3. Sigmoid Rectal Polyp, Biopsy: Portions of hyperplastic polyp x4. Superficial portion of colorectal mucosa x1 with no diagnostic abnormality. ICD10: K63.5 GROSS DESCRIPTION: The specimens are received in formalin, labeled with the patient's name, and sublabeled as the following: (1) cecal Bx; (2) descending polyp; (3) sigmoid polyp. (1) The specimen consists of a fragment of yanez glistening translucent tissue (0.4 x 0.2 x 0.1 cm). Section code: (1A) tissue. Specimen entirely submitted. (2) The specimen consists of a piece of ceron-yellow glistening semitranslucent tissue (0.7 x 0.5 x 0.1 cm). Section code: (2A) tissue. Specimen entirely submitted. (3) The specimen consists of multiple fragments of ceron-white glistening rubbery semi-translucent tissue (0.7 x 0.5 x 0.2 cm in aggregate). Section code: (3A) tissue. Specimen entirely submitted. 11/16/16 ICD-9 CODES: CPT CODES: 1: 10427 2: 35249 3: 07064 Electronically Signed Out Vicky Hart MD [facility] Pathology [facility], [place] [address] Technical component performed at [facility], [facility] [address], [place], [address]
== END 2016-11-16 23:59 | disposition home or self-care (01) ==
LOC: END 09:30
PROVIDERS: ATTEND Internal Medicine
DX: K57.30 Diverticulosis of large intestine without perforation or abscess without bleeding (principal); D12.4 Benign neoplasm of descending colon; K63.5 Polyp of colon; F17.210 Nicotine dependence, cigarettes, uncomplicated; K55.20 Angiodysplasia of colon without hemorrhage; K64.9 Unspecified hemorrhoids
CPT/HCPCS: 45380; 45385; 88305; G0500; J2250; J3010; J7030

== ENCOUNTER 2016-11-17 18:03 | Emergency (ER) | payer OTHER ==
[~2016-11-17] VITALS: Ht 170.2 cm; Wt 86.4 kg
[~2016-11-17 18:03] MED LIST changes: -0.9% Sodium Chloride 1,000 ML IV SCH; -CIPR-231 PO; -LACT1CAP57 PO; -ONDA4TAB12 PO; -OXYC1TAB24 PO; -PRD2.5T PO; -Sodium Chloride LOK Flush 10 mL Syringe IV PRN; -fentaNYL-PF 50 mCg/mL 2 mL Inj IVPUSH PRN
[2016-11-17 18:06] VITALS: BP 153/65; PULSE 95; RESP 16; O2SAT 98
--- NOTE | 2016-11-17 18:25 | ED.REPORT ---
HPI-Abd Pain F 40 and Over Date of Service Nov 17, 2016 ED Provider: Trey Blair DO Patient is a 46 year old female who was recently admitted on 10/12/16 for diverticulitis, presents to the ED complaining of lower abdominal pain onset today status post colonoscopy yesterday. She denies nausea, vomiting, hematochezia or diarrhea. The patient was referred to the ED after talking to Dr. Lakhani. Patient had a colonoscopy with a snare polypectomy. Nursing Notes Stated Complaint: ABDOMINAL PAIN POST COLONOSCOPY Chief Complaint: Female Abdominal Pain Nursing Notes Reviewed: Yes Allergies: Coded Allergies: azithromycin (Verified Allergy, Intermediate, rash, 11/17/16) Sulfa (Sulfonamide Antibiotics) (Verified Allergy, Unknown, 11/17/16) cephalexin (Verified Allergy, Unknown, 11/17/16) erythromycin base (Verified Allergy, Unknown, 11/17/16) latex (Verified Allergy, Unknown, 11/17/16) Scheduled Buspirone (Buspirone) 30 Mg Tablet 30 MG PO DAILY Duloxetine (Cymbalta) 30 Mg Capsule.dr 30 MG PO DAILY Trazodone (Trazodone) 100 Mg Tablet 100 MG PO HS Scheduled PRN Polyethylene Glycol 3350 (Miralax) 17 Gm Powd.pack 17 GM PO DAILY PRN PRN For Constipation Simvastatin (Simvastatin) 40 Mg Tablet 40 MG PO HS PRN PRN For Cholesterol General Time Seen by MD: 18:22 Chief Complaint Abdominal pain Hx Obtained From: Patient Arrived By: Walk-in Sudden in Onset?: Yes Onset Occurred: 1 - 4 hours ago Symptom Duration: Since onset Location: : Abdomen lower Quality: Painful Severity: Current: Moderate Recent Healthcare: Recent doctor visit, Recent hospitalization Similar Sx Previous: Yes Past Medical History Past Medical History Diverticulitis - CT + September 29, 2016 Hyperlipidemia Fibromyalgia Anxiety Insomnia Past Surgical History Appendectomy Total hysterectomy L&R bilateral shoulder surgery Reports: Smoking History Current Every Day Smoker Social History Alcohol Use: Denies alcohol use Ambulatory Status Independent Review of Systems Constitutional: Denies: Chills, Fever Respiratory: Denies: Non-productive cough, Shortness of breath GI: Reports: Abdominal pain, Denies: Bloody/tarry stool, Diarrhea, Hematochezia, Nausea, Vomiting Complete sys rev & neg: except as marked. Skin: Denies Itching, Denies Rash Physical Exam Vital Signs Vital Signs (First) Date Time Temp Pulse Resp B/P Pulse Ox O2 Delivery O2 Flow Rate FiO2 11/17/16 18:06 37.0 95 16 153/65 98 Room Air Initial VS: Reviewed General/Constitutional: Awake, Alert Respiratory / Chest: Atraumatic, Breath sounds NL, Breath sounds = bilat, No respiratory distress Cardiovascular: Heart rate NL, Regular rhythm, Heart sounds NL Abdomen: Atraumatic, Soft diffuse lower abdominal tenderness no peritonitis Back: Atraumatic, Non-tender Head / Eyes: Atraumatic, Normocephalic, PERRL, EOMI Skin: Atraumatic, Color NL, No rash, Warm, Dry Neurologic: Oriented X3, Speech NL, No motor deficits, No sensory deficits Psychiatric: Affect NL, Mood NL Interpretation & Diagnostics Lab Results Interpretation Result Diagram: 11/17/16191711/17/161917 Test 11/17/16 19:18 11/17/16 19:32 11/17/16 19:34 White Blood Count 7.2th/mm3 (3.8-10.1) Red Blood Count 5.07mil/mm3 (3.90-5.20) Hemoglobin 14.4g/dL (12.0-15.6) Hematocrit 43.0% (35.0-46.0) Mean Corpuscular Volume 84.8fL (81-100) Mean Corpuscular Hemoglobin 28.4pg (27.0-35.0) Mean Corpuscular Hemoglobin Concent 33.5% (32.0-37.0) Red Cell Distribution Width 13.7% (12.3-15.4) Platelet Count 237bil/L (150-400) Neutrophils (%) (Auto) 47.9% (40-74) Lymphocytes (%) (Auto) 39.3% (14-46) Monocytes (%) (Auto) 7.2% (4-12) Eosinophils (%) (Auto) 4.7% (0-5) Basophils (%) (Auto) 0.8% (0-3) Sodium Level 139mEq/L (134-144) Potassium Level 4.1mEq/L (3.5-5.2) Chloride Level 103mEq/L (97-108) Carbon Dioxide Level 22mmol/L (18-29) Blood Urea Nitrogen 5mg/dL (6-24) Creatinine 0.47mg/dL (0.57-1.00) Estimat Glomerular Filtration Rate 203mL/min (>59) Glucose Level 101mg/dL (60-99) Calcium Level 9.9mg/dL (8.5-10.1) Total Bilirubin 0.2mg/dL (0.0-1.2) Aspartate Amino Transf (AST/SGOT) 19U/L (0-50) Alanine Aminotransferase (ALT/SGPT) 18U/L (0-32) Alkaline Phosphatase 76U/L (25-150) Total Protein 7.5g/dL (6.4-8.4) Albumin 4.2g/dL (3.4-5.0) Hold Urine Received (Received) Urine Color Yellow (YELLOW) Urine Appearance Clear (CLEAR,HAZY) Urine pH 7.5 (5.0-8.0) Urine Specific [place] 1.010 (1.003-1.035) Urine Protein Negativemg/dL (NEG,TRACE) Urine Glucose (UA) Negativemg/dL (NEGATIVE) Urine Ketones Negativemg/dL (NEGATIVE) Urine Occult Blood Negative (NEGATIVE) Urine Nitrite Negative (NEGATIVE) Urine Bilirubin Negative (NEGATIVE) Urine Urobilinogen Normalmg/dL (NORMAL) Urine Leukocyte Esterase Negative (NEGATIVE) Urine RBC 0-2/hpf (0-2) Urine WBC 0-5/hpf (0-5) Urine Epithelial Cells Occasional/hpf (NONE-MOD) Urine Crystals None seen (NONE SEEN) Urine Bacteria None/hpf (NONE-FEW) Urine Hyaline Casts None/lpf (NONE) Urine Granular Casts None seen (NONE SEEN) Urine Waxy Casts None seen (NONE SEEN) Urine Red Blood Cell Casts None seen (NONE SEEN) Urine White Blood Cell Casts None seen (NONE SEEN) Urine Mucus None seen (None Seen) Urine Trichomonas None seen (NONE SEEN) Urine Yeast None (NONE SEEN) Urinalysis Comment None Urine Culture Reflexed Not indicated X-Ray Abdominal Interpretation IMPRESSION: 1. No evidence of pneumoperitoneum. Dictated by: Gustavo Briones M.D. on 11/17/2016 at 19:05 Approved by: Gustavo Briones M.D. on 11/17/2016 at 19:06 Interpretation / Wet Read by: Interpret - Radiologist CT Abd / Pelvis Interpretation IMPRESSION: 1. No evidence of pneumoperitoneum. 2. Mild segmental wall thickening of the sigmoid colon suggesting a mild colitis, likely infectious or inflammatory. 3. Mildly enlarged lucero hepatis and pericaval lymph nodes are nonspecific and may be reactive. Dictated by: Gustavo Briones M.D. on 11/17/2016 at 20:50 Approved by: Gustavo Briones M.D. on 11/17/2016 at 20:54 Interpretation / Wet Read by: Interpret - Radiologist Re-Eval/Medical Decision Med Decision/Clinical Course CT scan shows possible mild early colitis. This may also be contraction related to the recent bowel prep. I consulted with her editorial intern. Taking into account her story history of diverticulitis we will place her on a short course of Cipro and Flagyl. I chose Cipro due to her drug allergies. She is warned about the tendinopathy associated with this. She will be on a clear liquid diet. Some hydrocodone for pain and follow up closely. She will come back if she is not significantly improved in 24-48 hours. Re-Evaluation/Progress : Time of Eval: 21:20 Re-Evaluation/Progress Note: Discussed CT results and plan for follow up after discharge. Patient understands and agrees to plan for discharge. All questions were addressed. Consultation : Referral / Consult Name: Gerardo Lakhani MD Consulted With: On-call physician (GI) Call Returned at: 21:10 Knocker Out: Agrees with eval, Agrees with plan Note: Consult with Dr. Lakhani, who agrees that the patient should be put on antibiotics and discharged. Counseled Regarding: Diagnosis, Lab results, Need for follow-up, When/why to return to ED Discharge & Departure Primary Impression: Status post colonoscopy with polypectomy Additional Impression: Colitis Discharge Condition All VS Reviewed: Yes Condition: Stable Patient Instructions: Colitis (ED), Acute Abdominal Pain (ED) Additional Instructions: Your laboratory work was normal. The CAT scan shows mild thickening of the sigmoid colon. This could be indicative of very early diverticulitis or colitis. This may also be secondary to contraction from the recent bowel prep. I have consulted with her editorial intern. Take Cipro and Flagyl both twice daily for 5 days. If you develop any tendon pain or weakness while taking the Cipro, stop taking it and be seen right away by a doctor. Do not consume alcohol while taking the Flagyl. Otherwise clear liquid diet. You can take 1-2 [place] every 6 hours. You should feel much better by Sunday. I would like you to set up a follow-up with your primary care physician. You may also follow-up with gastroenterology. Call Sunday to set this up. If you develop fever or bloody diarrhea or any worsening pain, then come right back to the emergency department. Do not drive or drink alcohol while taking the pain medication. Do not consume acetaminophen while taking the [place]. Do not drive tonight or drink alcohol tonight as you have received sedating medications. Referrals: Gustavo Valdivia MD (PCP) Gerardo Lakhani MD Attestation Portions of this note were transcribed by Kylie Phillip. I, Dr. Blair personally performed the history, physical exam and medical decision-making; I reviewed and confirmed the accuracy of the information in the transcribed note. Signed by: Juan Francisco Fregoso, 11/17/16 and 1909 copies to: Gustavo Valdivia MD, Todd P DO Nov 17, 2016 18:25 Cinthia Phillip Nov 17, 2016 19:08
--- NOTE | 2016-11-17 19:08 | DRSVH ---
PROCEDURE: X-RAY ACUTE ABDOMINAL SERIES ([id number]) INDICATIONS: post colonoscopy abdominal pain TECHNIQUE: One view chest and two views of the abdomen were acquired. COMPARISON: [facility], CT, CT ABD PELVIS W CON, 10/12/2016, 20:30. FINDINGS: Surgical changes and devices: None. Chest: Lungs are clear. Heart size is normal. No pleural effusions. No pneumoperitoneum. Abdomen: Bowel gas pattern is within normal limits with a paucity of bowel gas. No suspicious calci fications. Bones: No suspicious bony lesions. IMPRESSION: 1. No evidence of pneumoperitoneum. Dictated by: Gustavo Briones M.D. on 11/17/2016 at 19:05 Approved by: Gustavo Briones M.D. on 11/17/2016 at 19:06
[2016-11-17] MEDS: Ondansetron 2 mg/mL 2 mL Inj IVPUSH PRN ×2 (19:18→20:10)
[2016-11-17] MEDS: HYDROmorphone 0.5 mg/0.5 mL iSecure Syringe IVPUSH PRN ×2 (19:20→20:10)
[2016-11-17 19:29] LABS: BASOPHILS % (AUTO) 0.8 % (0-3); EOSINOPHILS % (AUTO) 4.7 % (0-5); MONOCYTES % (AUTO) 7.2 % (4-12); Mean Corpuscular Hemoglobin 28.4 pg (27.0-35.0); Mean Corpuscular Volume 84.8 fL (81-100); NEUTROPHILS % (AUTO) 47.9 % (40-74); Platelet Count 237 bil/L (150-400)
[2016-11-17 19:47] LABS: APPEARANCE,URINE CLEAR (CLEAR,HAZY); COLOR,URINE YELLOW (YELLOW); OCCULT BLOOD,URINE NEGATIVE (NEGATIVE); PH,URINE 7.5 (5.0-8.0); UROBILINOGEN,URINE NORMAL (NORMAL)
--- NOTE | 2016-11-17 20:56 | DRSVH ---
PROCEDURE: CT ABDOMEN AND PELVIS WITH CONTRAST ([id number]) INDICATIONS: post colonscopy pain TECHNIQUE: After the administration of oral and intravenous contrast, 5 mm thick sections acquired from the diap hragms to the symphysis. 5 mm thick coronal and sagittal reformats were performed. For radiation do se reduction, the following was used: automated exposure control, adjustment of mA and/or kV accordi ng to patient size. COMPARISON: [facility], CT, CT ABD PELVIS W CON, 10/12/2016, 20:30. FINDINGS: Image quality: Excellent. ABDOMEN: Lung bases: Mild dependent atelectasis is present. There is heterogeneous attenuation of the lungs w ith patchy areas of groundglass opacity. Findings may represent pulmonary edema or air trapping. He art size is normal. There is a small hiatal hernia. Solid organs: Liver and spleen are normal in size and enhancement. Gallbladder appears within sneha l limits without calcified gallstones. Biliary system is non-dilated. Pancreas enhances normally. No adrenal nodules. Kidneys are normal in size and enhancement, without hydronephrosis. Peritoneum and bowel: Stomach and small bowel loops are normal in caliber and wall thickness. There is colonic diverticulosis without diverticulitis. There is mild segmental wall thickening within th e sigmoid colon suggesting a mild colitis. No free fluid or air. Nodes and vessels: There are mildly enlarged lucero hepatis and pericaval lymph nodes measuring up 1.2 cm which appear similar to the prior study. Aorta and inferior vena cava are normal in caliber. Miscellaneous: No ventral hernias. PELVIS: Genitourinary: Bladder wall thickness is normal. Miscellaneous: No inguinal hernias or adenopathy. Bones: No suspicious bony lesions. No vertebral body compression fractures. IMPRESSION: 1. No evidence of pneumoperitoneum. 2. Mild segmental wall thickening of the sigmoid colon suggesting a mild colitis, likely infectious or inflammatory. 3. Mildly enlarged lucero hepatis and pericaval lymph nodes are nonspecific and may be reactive. Dictated by: Gustavo Briones M.D. on 11/17/2016 at 20:50 Approved by: Gustavo Briones M.D. on 11/17/2016 at 20:54
[2016-11-17] MEDS ORDERED: _HYDROcodone/APAP 5-325 mg Tablet PO PRN (21:30)
[2016-11-17 21:53] VITALS: BP 135/84; PULSE 78; RESP 16; O2SAT 97
[2016-11-17 22:03] VITALS: BP 135/84; PULSE 78; RESP 16; O2SAT 97
[2016-11-18] MEDS ORDERED: Sodium Chloride LOK Flush 10 mL Syringe IVFLUSH SCH (00:30)
== END 2016-11-17 22:00 | disposition home or self-care (01) ==
LOC: SED 18:03
DX: K52.9 Noninfective gastroenteritis and colitis, unspecified (principal); Z93.3 Colostomy status; F17.200 Nicotine dependence, unspecified, uncomplicated; Z90.710 Acquired absence of both cervix and uterus; Z79.899 Other long term (current) drug therapy; Z88.1 Allergy status to other antibiotic agents; Z88.2 Allergy status to sulfonamides; Z91.040 Latex allergy status
CPT/HCPCS: 36415; 74022; 74177; 80053; 81000; 85025; 96374; 96375; 96376; 99285; J1170; J2405; Q9967